=== PATIENT | male | born 1950 | race Caucasian/White ===

== ENCOUNTER → 2024-11-12 | Outpatient (CLI) | payer MEDICARE, OTHER, SELFPAY ==
--- NOTE | 2024-11-12 12:20 | RAD_ITS ---
PROCEDURE: LUMBAR SPINE 2 OR 3 VIEWS REASON FOR EXAM: BACK PAIN. TECHNIQUE: 2 view(s) of the lumbar spine COMPARISON: None. FINDINGS: Normal lumbar vertebral heights. No evidence of fracture. Marked narrowing of the L4-L5 and L5-S1 interspaces. Grade 1 anterolisthesis of L5 on S1. Multilevel lumbar facet arthropathy. Mild spondylosis. Soft tissues unremarkable. RAD/Lumbar Spine 2 or 3 Views IMPRESSION: Degenerative disc disease at L4 through S1. Grade 1 anterolisthesis, L5 on S1. Spondylosis. Reading Location: [facility]
--- NOTE | 2024-11-12 12:26 | RAD_ITS ---
PROCEDURE: SACRUM-COCCYX MIN 2 VIEWS REASON FOR EXAM: Back pain. TECHNIQUE: 3 view(s) of the sacrum and coccyx. COMPARISON: None. FINDINGS: The sacrum and coccyx are grossly intact. No displaced fracture. Grade 1 anterolisthesis of L5 on S1. Degenerative disc disease at L4-5 and L5-S1 Facet arthropathy of the lower lumbosacral spine. Sacroiliac joints are unremarkable. Metallic clips in the central lower pelvis. RAD/Sacrum-Coccyx min 2 Views IMPRESSION: No acute osseous abnormalities involving the sacrum and coccyx. Grade 1 anterolisthesis, L5 on S1. Degenerative disc disease at L4-5 and L5-S1. Reading Location: [facility]
== END | disposition home or self-care (01) ==
PROVIDERS: PCP Family Medicine; Referring Provider Anesthesiology Pain Medicine; Visit Provider Anesthesiology Pain Medicine
DX: M54.9 Dorsalgia, unspecified (principal)
CPT/HCPCS: 72100; 72220